=== PATIENT | female | born 1960 | race Caucasian/White ===

== ENCOUNTER → 2018-05-02 | Outpatient (CLI) | payer BC ==
--- NOTE | 2018-05-02 14:31 | DIAGNOSTIC IMAGING REPORT ---
LEFT HIP INJECTION UNDER FLUOROSCOPIC GUIDANCE CLINICAL HISTORY: Left hip pain. Steroid injection. PROCEDURE: The risks, benefits, and alternatives to the procedure were discussed with the patient. Written informed consent was obtained. The patient was placed supine on the fluoroscopy table, and a left hip injection was performed under fluoroscopic guidance. The area was prepped and draped in the usual sterile fashion. The skin and soft tissues anesthetized with local 1% lidocaine. The left hip joint was accessed utilizing a 22-gauge needle, and intra-articular positioning was confirmed by injecting a small volume of Optiray 300. The prescribed dosage of 2 cc of betamethasone and 8 cc of 0.5% bupivacaine was then injected into the joint space. The procedure was well tolerated and without immediate complication. The patient left the department in satisfactory condition. FLUOROSCOPY TIME: 11 seconds. IMPRESSION: Successful sterile injection of the left hip under fluoroscopic guidance. Electronically signed by: Skip Nunez M.D. 05/02/2018 2:29 PM Dictated Date/Time: 05/02/2018 2:28 PM
== END | disposition home or self-care (01) ==
LOC: C.RADBC 13:42
PROVIDERS: ATTEND Orthopaedic Surgery
DX: M16.12 Unilateral primary osteoarthritis, left hip (principal)

== ENCOUNTER 2021-10-25 06:24 | Observation (INO) ==
--- NOTE | 2021-09-22 09:59 | PAT Medication Instructions ---
Medication Instructions Date of Service September 22, 2021 Home Medications Medication Instructions Recorded amoxicillin 500 mg tablet 2,000 mg PO ONCE #4 tab 03/21/21 albuterol sulfate 90 mcg/actuation aerosol inhaler (Ventolin HFA) 2 puff INHALATION Q6H PRN multivitamin 1 tab PO QAM naproxen sodium 220 mg capsule (Aleve) 440 mg PO BID PRN budesonide-formoterol HFA 80 mcg-4.5 mcg/actuation aerosol inhaler (Symbicort) 2 puff INHALATION QPM PRN amoxicillin 500 mg tablet 2,000 mg PO ONCE acetaminophen 500 mg tablet 1,000 mg PO Q6H PRN ascorbic acid (vitamin C) 500 mg tablet (Vitamin C) 500 mg PO QAM cholecalciferol (vitamin D3) 25 mcg (1,000 unit) tablet (Vitamin D3) 25 mcg PO QAM zinc 50 mg tablet 50 mg PO QAM Continue as directed amoxicillin 500 mg tablet 2,000 mg PO ONCE (if needed) ASK your surgeon for instructions naproxen sodium 220 mg capsule (Aleve) 440 mg PO BID PRN DO NOT take the morning of surgery multivitamin 1 tab PO QAM ascorbic acid (vitamin C) 500 mg tablet (Vitamin C) 500 mg PO QAM cholecalciferol (vitamin D3) 25 mcg (1,000 unit) tablet (Vitamin D3) 25 mcg PO QAM zinc 50 mg tablet 50 mg PO QAM Take morning of surgery With a small sip of water, OTHERWISE NOTHING TO EAT OR DRINK AFTER MIDNIGHT: albuterol sulfate 90 mcg/actuation aerosol inhaler (Ventolin HFA) 2 puff INHALATION Q6H PRN (use if needed; please bring with you to hospital day of surgery if possible) acetaminophen 500 mg tablet 1,000 mg PO Q6H PRN (okay to take up to 4 hours prior to surgery if needed) Take evening before surgery albuterol sulfate 90 mcg/actuation aerosol inhaler (Ventolin HFA) 2 puff INHALATION Q6H PRN (if needed) budesonide-formoterol HFA 80 mcg-4.5 mcg/actuation aerosol inhaler (Symbicort) 2 puff INHALATION QPM PRN (if needed) acetaminophen 500 mg tablet 1,000 mg PO Q6H PRN (if needed) Other Notes If you have any questions please call us at [phone] or [phone] or [phone] or [phone]
--- NOTE | 2021-09-27 08:36 | Anesthesiology Consultation ---
Date of Service September 27, 2021 Assessment & Plan (1) Encounter for pre-operative examination: - Case discussed with Dr. Seo. He advised nothing further needed regarding low WBC and patient is acceptable outpatient joint candidate. Upon review of chart- patient is an acceptable candidate for [facility] from anesthesia perspective pending perioperative course. Pending patient is motivated, has good support and surgeon's office completes [facility] preop requirements- patient may proceed with outpatient BRYNN. - anesthesia record left BRYNN 07/09/2018: SAB at L3-L4, 1 attempt. No issues per anesthesia postop progress note. Per pt significant PONV for 1-2 days after surgery-"felt very cold, waking just to vomit and returning to sleep." - COVID screening: Per assessment on 09/27/2021: Travel screen negative, no known COVID-19 positive contacts or current COVID-19 related symptoms in past 2 weeks. Surgeon arranging preop COVID testing, scheduled 10/21/2021 [facility]. Awaiting results. Chart Review Chart Review: Acceptable Risk for Surgery and Patient seen in Pre Admission Testing Teaching & Discussion Pre-Anesthesia Teaching/Discussion Notes: Instructed NPO after midnight before surgery, except medications with 15 cc of water. Medication instructions provided according to the PAT guidelines. History Surgery Operation Date: 10/25/21 10:40 Proposed Procedures p Right Total Hip Arthroplasty - Rasta Benjamin MD Height/Weight Height: 5 ft 6 in Weight: 72.3 kg Allergies Allergy/AdvReac Type Severity Reaction Status Date / Time No Known Allergies Allergy Verified 09/19/21 08:56 Medications Home Medications Medication Instructions Recorded Confirmed Last Taken albuterol sulfate 90 mcg/actuation 2 puff INHALATION Q6H PRN 06/06/18 09/19/21 Unknown aerosol inhaler (Ventolin HFA) multivitamin 1 tab PO QAM 06/06/18 09/19/21 07/08/18 08:00 naproxen sodium 220 mg capsule 440 mg PO BID PRN 06/06/18 09/19/21 06/28/18 22:00 (Aleve) budesonide-formoterol HFA 80 2 puff INHALATION QPM PRN 07/09/18 09/19/21 Unknown mcg-4.5 mcg/actuation aerosol inhaler (Symbicort) amoxicillin 500 mg tablet 2,000 mg PO ONCE #4 tab 07/12/21 01/10/22 Unknown acetaminophen 500 mg tablet 1,000 mg PO Q6H PRN 09/19/21 09/19/21 Unknown ascorbic acid (vitamin C) 500 mg 500 mg PO QAM 09/19/21 09/19/21 Unknown tablet (Vitamin C) cholecalciferol (vitamin D3) 25 25 mcg PO QAM 09/19/21 09/19/21 Unknown mcg (1,000 unit) tablet (Vitamin D3) zinc 50 mg tablet 50 mg PO QAM 09/19/21 09/19/21 Unknown Past Medical History Medical History (Updated 09/28/21 @ 12:46 by Annie Lopez PA-C) Arthritis of right hip Asthma last rescue inhaler use > 3 months ago History of anesthesia reaction PONV, "freezing cold and out of it, waking just to vomit and going back to sleep" with BRYNN 2018 History of IBS history, denies current symptoms Osteoarthritis Pancreatic cyst F/U ANNUALLY [facility]-monitoring, stable per 08/2021 MRI Pulmonary nodules monitoring Spina bifida occulta per pt per 2018 anesthesia consult Patient denies h/o stroke, seizures, heart attack, heart failure, DM, HTN, blood clots or blood transfusions. Exercise / Class Metabolic Activity II 4-5 Yardwork/Stairs/Walk up hill (denies CP or SOB with 1 FOS) Past Family History Family History Other No known health problems Past Surgical History Surgical History (Updated 09/28/21 @ 12:46 by Annie Lopez PA-C) History of colonoscopy History of endoscopic sinus surgery History of open reduction and internal fixation (ORIF) procedure LEFT CLAVICLE History of total hip arthroplasty LEFT 07/09/2018: SAB at L3-L4, 1 attempt. Per pt significant PONV for 1-2 days after surgery-"waking just to vomit and returning to sleep" Past Anesthesia History No Family Hx of Anesthesia Complications and Other (see BRYNN 2018 surgical history) History of PONV No Hx of Motion Sickness and History of PONV Social History Smoking Status: Never smoker Do You Dip or Chew Tobacco: No Hx Alcohol Use: Yes Alcohol type: wine alcohol intake frequency: a few times a month Hx Substance Use: No substance use type: does not use Review of Systems Snoring, denies witnessed apneas or sleep studies. Occasional reflux/heartburn. Patient denies chest pain, shortness of breath, dyspnea on exertion, fever, chills, cough, wheezing, or palpitations. Physical Exam Vital Signs Vitals BP 122/74 P 62 TEMP 98.8 SP02 96% on RA RESP 17 Physical Full cervical extension range of motion without pain Full TMJ range of motion TMD 3 finger breaths Mallampati Score 2 Dentition: intact, 5 crowns upper sides; denies missing, chipped or loose teeth, implants or bridges Lungs: normal respiratory effort. Clear throughout to auscultation, no adventitious breath sounds Cardiac: regular rate and rhythm, no murmurs noted Carotid arteries: negative bruit bilat Extremities: no distal extremity edema Lab Results Anesthesia Preop Results Results Anesthesia Widget: WBC 3.79 K/uL (4.8-10.8) L 09/27/21 Hgb 13.8 g/dL (12.0-16.0) 09/27/21 Hct 41.4 % (37-47) 09/27/21 Plt 165 K/uL (130-400) 09/27/21 Na 138 mmol/L (136-145) 09/27/21 K 4.2 mmol/L (3.5-5.1) 09/27/21 Cl 105 mmol/L (98-107) 09/27/21 CO2 28 mmol/L (21-32) 09/27/21 BUN 15 mg/dl (6-23) 09/27/21 Creat 0.75 mg/dl (0.6-1.2) 09/27/21 Glucose Level 83 mg/dl (70-99(Fasting)) 09/27/21 PT 10.2 Seconds (9.0-12.0) 09/27/21 PTT 29.5 Seconds (21.0-31.0) 09/27/21 INR 1.0 (0.9-1.1) 09/27/21 HA1c 5.4 % (4.5-5.6) 09/27/21 Blood Type O Positive 09/27/21 Antibody Screen NEGATIVE 09/27/21 Lab Comments: PAT testing faxed to PCP for continuity of care. Testing Electrocardiogram Date: 09/27/21 Sinus bradycardia, rate 54 bpm. No significant change when compared with 06/10/2018 EKG. Chest X-Ray Date: 09/27/21 FINDINGS: Lung volumes are normal. Lungs are clear. There is no pneumothorax or pleural effusion. Cardiac size is normal. Mediastinal contours are normal. There is no evidence for pulmonary edema. Calcified mediastinal and right hilar lymph nodes are incidentally noted. Left clavicular internal fixation is present. IMPRESSION: No acute cardiopulmonary findings. Other Testing MRI pancreas w and w/o contrast 08/20/2021 10 x7 x9 mm distal pancreatic tail cystic lesion, unchanged from 05/25/2016. Two year follow-up is suggested
--- NOTE | 2021-10-21 15:36 | History and Physical Report ---
DATE OF ADMISSION: 10/25/2021 CHIEF COMPLAINT: Persistent and progressive right hip pain. HISTORY OF PRESENT ILLNESS: The patient is a 61-year-old white female who presents for surgical emilio tment of her right hip. She has a history of left hip replacement done by myself back in 06/2018. O anjali the past year, in particular in the past 6 months, she has developed increased pain and discomfor t in her right hip. She describes groin pain, thigh pain and buttock and low back pain. She has bee n through extensive medication management including various NSAIDs without much relief. It is limiti ng her activities. The more she walks, the more it hurts. She would like to have her right hip fixe d. PAST MEDICAL HISTORY: Significant for, 1. Asthma. 2. Osteoarthritis. PAST SURGICAL HISTORY: Includes, 1. Left total hip replacement done on 07/09/2018. 2. Left clavicle ORIF. ALLERGIES: None. CURRENT MEDICATIONS: Include, 1. Albuterol. 2. Symbicort. 3. Mobic. 4. Multivitamin. 5. Aleve. SOCIAL HISTORY: A 61-year-old female. She is . Does not smoke. FAMILY HISTORY: Noncontributory. REVIEW OF SYSTEMS: Negative for diabetes, neurologic problem, vascular problem, or bleeding disorder s. No chest pain or shortness of breath. No history of DVT or PE. No known bleeding problems. PHYSICAL EXAMINATION: GENERAL: Healthy, pleasant, middle-aged female. Looks to be in excellent health. HEENT: Benign. NECK: Supple. No lymphadenopathy. LUNGS: Clear to auscultation. HEART: Has a regular rate and rhythm. ABDOMEN: Soft, nontender, nondistended. EXTREMITIES: Grossly neurovascularly intact except as follows: Examination of the right hip reveale d patient ambulates with a bit of a limp. Leg lengths appear pretty equal. She has got a very stiff hip with internal rotation to neutral, which creates her pain. Negative straight leg raise. She is neurologically intact. No knee effusion. X-RAYS: X-rays of the right hip are reviewed. It shows advanced right hip DJD. She has near comple te loss of her joint space. She has got cystic changes in the femoral head and acetabulum. This has progressed significantly over the past year. The left hip replacement looks to be in good position. ASSESSMENT: A 61-year-old female status post left hip replacement 3 years ago with advanced right hi p degenerative joint disease. This has progressed markedly over the past year and has been nonrespon sive to conservative care. She would like to have her right hip fixed. PLAN: We will proceed with right total hip replacement. The risks and benefits of this procedure we re explained to the patient that include but not limited to DVT, PE, , infection, neurological i njury, vascular injury, bleeding problem, pain, limited range of motion, stiffness, failure to reliev e her symptoms, incomplete relief of symptoms, need for further surgery in the future, fracture, leg length inequality, nerve palsy, dislocation, etc. The patient understands and desires to proceed. I nformed consent was obtained. The patient did have a lot of problems with nausea postoperatively. We will try and eliminate the mo rphine in the spinal. We will use some Decadron at the time of surgery. We will also use Zofran and scopolamine patch. She is planning to be discharged to home and do this as an outpatient. She will follow up with us 2 weeks postop. She is going to have [facility] do outpatient care for her. Job ID: [id number]
[~2021-10-25 06:24] MED LIST: ACETAMINOPHEN 500 MG TAB PO SCH; FAMOTIDINE 20 MG TAB PO SCH; GABAPENTIN 600 MG DOSE PO SCH; LR 500ML BOLUS, THEN 15ML/HR IV SCH; LR 60ML/HR IV SCH; Scopolamine 1 MG TDSY TD SCH; TRANEXAMIC ACID 1,000 MG **IV Pre-op IV SCH; ceFAZolin 2000MG 2,000 MG/15 ML SYR IV SCH
[2021-10-25] MEDS ORDERED: MEPIVACAINE HCL 1.5% 30 ML VIAL ONE (06:29)
--- NOTE | 2021-10-25 06:55 | History & Physical Bridge Note ---
Date of Service October 25, 2021 History & Physical Bridge Note I have examined the patient, reviewed the History & Physical and in the interval since the performance of the History & Physical I have noted the following changes of clinical significance: no changes noted
[2021-10-25] MEDS ORDERED: LIDOCAINE 2%/EPINEPHRINE 1:200,000 20 ML SDV ONE (07:27)
[2021-10-25] MEDS ORDERED: MIDAZOLAM HCL 1 MG/ML 2ML VIAL ONE (07:54)
[2021-10-25] MEDS ORDERED: EPINEPHrine INJ 1 MG/ML AMP ONE (08:31)
[2021-10-25] MEDS ORDERED: BUPIVACAINE 0.5 % 5 MG/1 ML MPF 30ML VIAL ONE (08:31)
[2021-10-25] MEDS ORDERED: ATROPINE SULFATE 0.1 MG/ML 10ML SYR IV PRN (08:59)
[2021-10-25] MEDS ORDERED: ONDANSETRON INJ 2 MG/ML 2 ML VIAL IV PRN ×2 (08:59→15:38)
[2021-10-25] MEDS ORDERED: HYDROmorphone INJ 2 MG/ML SYR/VIAL IV PRN (08:59)
[2021-10-25] MEDS ORDERED: ePHEDrine sulfate 50 MG/ML AMP IV PRN (08:59)
[2021-10-25] MEDS ORDERED: fentaNYL citrate 100 MCG/2 ML VIAL IV PRN (08:59)
[2021-10-25] MEDS ORDERED: KETAMINE 50 MG/5 ML SYRINGE ONE (09:06)
[2021-10-25] MEDS ORDERED: GLYCOPYRROLATE 0.2 MG/ML VIAL ONE (09:22)
[2021-10-25] MEDS ORDERED: KETOROLAC 30 MG/ML VIAL ONE ×2 (09:22→16:10)
[2021-10-25] MEDS ORDERED: PROPOFOL IV EMULSION 10 MG/ML 20 ML VIAL IV ONE (09:22)
[2021-10-25] MEDS ORDERED: ONDANSETRON INJ 2 MG/ML 2 ML VIAL ONE (09:22)
[2021-10-25] MEDS ORDERED: PHENYLEPHRINE HCL 10 MG/ML VIAL ONE (09:22)
[2021-10-25] MEDS ORDERED: DEXAMETHASONE SOD INJ 4 MG/ML VIAL ONE (09:22)
[2021-10-25] MEDS ORDERED: traMADol HCL 50 MG TABLET PO PRN ×2 (10:25→15:38)
--- NOTE | 2021-10-25 10:36 | Operative Report ---
PG Post Operative Report Pre & Post Diagnosis Operation Date: 10/25/21 08:40 Pre-Op Diagnosis: Right Hip Advanced Degenerative Joint Disease Post-Op Diagnosis: Right Hip Advanced Degenerative Joint Disease I identified the patient and participated in the time-out.: Yes Procedure Operation Date: 10/25/21 08:40 Actual Procedures p Right Total Hip Arthroplasty--Uncemented(Right) - Rasta Benjamin MD Surgeon Rasta Benjamin MD Director Surface Transportation Michael Garcia PA-C Estimated Blood Loss 200 Findings Consistent with Post-Op Diagnosis Operative findings were advanced right hip DJD. She had grade 4 dmag-to-rjth disease the femoral head and acetabulum with a moderate to large hip joint effusion. Some moderate to large amount of hip synovitis as well as particularly anteriorly. Fluids 1900 cc Specimens Right femoral head sent for pathology Drains None Anesthesia Type MAC Epidural Complications none Disposition Accompanied Patient To Recovery: Yes Indications Patient is 61-year-old female has had a history of hip problems. She had her left hip replaced couple years ago and is done well. Over the past couple years she developed increased pain discomfort in her right hip. She failed conservative measures. X-rays show advanced hip arthritis. She elected proceed with surgical management. Description of Procedure Operative implants consist of: 1. Biomet G7 size 50 mm acetabular shell. 2. 6.5 cancellous acetabular screws 135 mm length 125 mm length. 3. [place] hole crystal report developer. 4. Highly cross-linked polyethylene liner with a 50 mm outer diameter and 32 mm inner diameter. 5. DePuy [place] size 9 KLA femoral stem. 6. +5/32 mm ceramic articular ball. The patient was taken to the operating, identified, placed on the operating table supine position protectors were properly padded. IV antibiotics tried by anesthesia team. A spinal anesthetic had been implemented holding area. Patient was then placed in the left lateral cubitus position. Axillary roll was placed. A Stulberg hip positioner was used for positioning. The right hip and leg were then prepped and draped in usual sterile fashion. A posterior lateral approach to the right hip was then performed to a curvilinear incision centered over the greater trochanter. Sharp dissection got through subcutaneous tissue down to level the IT band gluteal fascia the IT band gluteal fascia were incised longitudinally in line with skin incision. The underlying greater bursa was excised. The piriformis and external rotators were tagged and taken off the posterior aspect hip joint capsule. Great care was taken throughout the procedure protect the sciatic nerve at all times. Posterior capsulotomy was then performed leaving a large flap for later repair. Hip was internally rotated and dislocated. Femoral neck osteotomy cut was made with Final Cut about 10 to 11 mm above the lesser trochanter. Femoral head was removed and sent for pathology. The femur was retracted anteriorly. Attention drawn the acetabulum. The acetabular labrum was excised. The pulmonary fat was excised. Sequential reaming the acetabular was then performed begin with size 43 and progressing up to 49. I reamed a little bit with a 50 reamer and then placed a 50 mm cup in about 40 degrees lateral opening and 20 degrees of anteversion. It was fixed with two 6.5 cancellous acetabular screws. A trial liner was placed. Attention drawn the femur. The proximal femur was entered with a cookie-cutter followed by canal finder. I then broached begin the size 8 and progressing up to 9. We had quite a bit of difficulty getting the 9 downside in think I can fit a 10 size similar to the opposite side. I then trialed the hip. The +5 articular ball provided full stability in full extension and external rotation and flexion to 90 degrees internal rotation over 50 degrees. Soft tissue tension seemed appropriate. Leg lengths seem equal. We elect to place these implants. All trial implants were removed. An apex hole crystal report developer was placed but highly cross-linked polyethylene liner was placed. A DePuy size 9 KLA femoral stem was impacted in position. +5/32 mm ceramic articular ball was placed. Hip was located once again found to be stable. Attention drawn toward closing. The wound was irrigated with copious also pulsatile lavage solution. We did inject locally with 60 cc of half percent Marcaine with epinephrine. Posterior capsule and external rotators were then repaired through drill holes in the posterior trochanter with #2 Tycron suture. The IT band gluteal fascia then closed in 1 PDS suture running fashion for subcutaneous tissue then closed 2 layers the deep layer #1 Vicryl suture in the subcutaneous tissues with 2-0 Dexon suture in a buried interrupted fashion the skin was closed skin remi. Leg was then cleaned and dried a sterile dressing was Xeroform, 4 x 4's, ABD p ad, foam tape was applied. The patient then transferred to the recovery room in stable condition. The patient tolerated procedure well and there were no complications. Michael Garcia, my physician intellectual property legal assistant, was present for the entire procedure. His assistance was essential and required for appropriate patient positioning, prepping and draping, surgical exposure, performing the technical details of the operation, placement the implants, closure of the wound, and placement of the sterile bandage. I attest to the content of the Intraoperative Record and any orders documented therein. Any exceptions are noted below.
--- NOTE | 2021-10-25 11:04 | XRay Report ---
XR hip 1V RT w pelvis HISTORY: 61 years-old Female IN PACU - A/P PELVIS and LATERAL HIP right hip total joint arthroplast y COMPARISON: Pelvis and hip radiographs 10/09/2019 TECHNIQUE: AP view of the pelvis with crosstable lateral view of the right hip FINDINGS: Left hip total joint arthroplasty redemonstrated. Mildly demineralized appearance the bones. Right hi p total joint arthroplasty demonstrates satisfactory alignment without acute fracture. Lateral skin s taples are noted along with expected postoperative soft tissue swelling and deep tissue air. No unexp ected opaque foreign body identified. Pelvic basin phleboliths. IMPRESSION: Right hip total joint arthroplasty with expected postoperative changes. ACT 112: Negative or not required by law. The above report was generated using voice recognition software. It may contain grammatical, syntax o r spelling errors. Electronically signed by: Cristo Rea M.D. 10/25/2021 11:03 AM
--- NOTE | 2021-10-25 11:38 | Anesthesiology Progress Note ---
Date of Service October 25, 2021 Anesthesia Post Procedure Vital Signs Vital Signs: Temp Pulse Pulse Resp BP Pulse Ox 10/25/21 11:00 36.3 C L 72 17 130/93 98 10/25/21 10:50 71 19 139/92 99 10/25/21 10:40 78 16 140/81 100 10/25/21 10:30 36.1 C L 81 16 132/88 100 10/25/21 06:53 36.6 C 58 L 18 131/86 97 Pain Intensity Right Hip: Pain Intensity: 5 Back: Pain Intensity: 2 Transfer of Care Handoff Completed per policy Notes Mental Status: alert / awake / arousable and participated in evaluation Patient Amnestic to Procedure: Yes Nausea / Vomiting: adequately controlled Pain: adequately controlled Airway Patency, RR, SpO2: stable & adequate BP & HR: stable & adequate Hydration State: stable & adequate Anesthetic Complications: no major complications apparent and Pt Satisfied with anesthetic care
[2021-10-25] MEDS ORDERED: ceFAZolin 1000MG 1,000 MG/7.5 ML SYR IV ONE (12:30)
[2021-10-25] MEDS ORDERED: diphenhydrAMINE Capsule 25 MG CAP PO PRN (15:38)
[2021-10-25] MEDS ORDERED: bisacodyL 10 MG SUPP PR PRN (15:38)
[2021-10-25] MEDS ORDERED: NALOXONE HCL 0.4 MG/1 ML VIAL/CARP IV PRN (15:38)
[2021-10-25] MEDS ORDERED: MAGNESIUM HYDROXIDE SUSP 30 ML UDC PO PRN (15:38)
[2021-10-25] MEDS ORDERED: METOCLOPRAMIDE HCL INJ 5 MG/ML 2 ML VIAL IV PRN (15:38)
[2021-10-25] MEDS: KETOROLAC 30 MG/ML VIAL IV SCH ×2 (16:11→21:25)
[2021-10-25] MEDS: Scopolamine CHECK PATCH PLACEMENT SCH (16:54)
[2021-10-25] MEDS: SODIUM CHLORIDE 0.9% 1000ML 1,000 ML IV SCH ×2 (16:54→21:31)
[2021-10-25] MEDS: ASCORBIC ACID 500 MG TAB PO SCH (17:16)
[2021-10-25] MEDS: ceFAZolin 1000MG 1,000 MG/7.5 ML SYR IV SCH (17:19)
[2021-10-25] MEDS ORDERED: SENNA 8.6 MG TAB PO SCH (21:00)
[2021-10-25] MEDS: ASPIRIN 81 MG ECTAB PO SCH (21:24)
[2021-10-25] MEDS: ACETAMINOPHEN 500 MG TAB PO SCH (21:24)
[2021-10-25] MEDS: DOCUSATE SODIUM 100 MG CAP PO SCH (21:24)
[2021-10-25] MEDS ORDERED: TRANEXAMIC ACID / 0.7% NACL 1,000 MG/100 ML BAG IV SCH (21:45)
[2021-10-26] MEDS: Scopolamine CHECK PATCH PLACEMENT SCH ×2 (01:32→08:21)
[2021-10-26] MEDS: ceFAZolin 1000MG 1,000 MG/7.5 ML SYR IV SCH (01:32)
[2021-10-26] MEDS: KETOROLAC 30 MG/ML VIAL IV SCH ×2 (03:35→09:22)
[2021-10-26] MEDS: ACETAMINOPHEN 500 MG TAB PO SCH ×2 (06:00→14:03)
[2021-10-26 06:21] LABS: Basophils # (auto) 0.02 K/uL (0-0.2); Basophils % (auto) 0.3 %; Eosinophils # (auto) 0.03 K/uL (0-0.5); Eosinophils % (auto) 0.4 %; Hematocrit (blood only) 33.9 % (37-47); Hemoglobin 11.2 g/dL (12.0-16.0); Immature Granulocytes # (auto) 0.01 K/uL (0.00-0.02); Immature Granulocytes % (auto) 0.1 %; Lymphocytes # (auto) 1.61 K/uL (1.2-3.4); Lymphocytes % (auto) 20.8 %; Mean Corpuscular Hemoglobin 29.9 pg (25-34); Mean Corpuscular Volume 90.4 fL (80-100); Mean Platelet Volume 12.6 fL (7.4-10.4); Monocytes # (auto) 0.43 K/uL (0.11-0.59); Monocytes % (auto) 5.6 %; Neutrophils # (auto) 5.63 K/uL (1.4-6.5); Neutrophils % (auto) 72.8 %; Platelet Count 154 K/uL (130-400); RDW Coefficient of Variation 13.1 % (11.5-14.5); Red Blood Count 3.75 M/uL (4.2-5.4); White Blood Count 7.73 K/uL (4.8-10.8)
[2021-10-26 06:40] LABS: BUN Creatinine Ratio 13.4 (10-20); Calcium 8.8 mg/dl (8.5-10.1); Creatinine Clr Calc Pharmacy 75.1 ml/min; Est GFR (African American) 90.8 ml/min; Est GFR (Non-African American) 78.3 ml/min; Potassium 3.9 mmol/L (3.5-5.1)
[2021-10-26] MEDS ORDERED: dexAMETHasone 10 MG in SYRINGE 0 ML IV SCH (08:00)
[2021-10-26] MEDS: ASCORBIC ACID 500 MG TAB PO SCH (08:21)
[2021-10-26] MEDS: DOCUSATE SODIUM 100 MG CAP PO SCH (08:23)
[2021-10-26] MEDS: ASPIRIN 81 MG ECTAB PO SCH (08:23)
[2021-10-26] MEDS ORDERED: MULTIVITAMIN TAB PO SCH (09:00)
--- NOTE | 2021-10-26 14:39 | Progress Notes ---
DATE OF SERVICE: 10/26/2021 SUBJECTIVE: A 61-year-old white female postoperative day 1 from right hip replacement. She stayed o vernight as she was having troubles with hypotension. Doing much better today. She has been walking in the hallway with her . Pain is controlled. No chest pain or shortness of breath. Not fe eling dizzy or lightheaded. OBJECTIVE: VITAL SIGNS: Temperature 36.9. Vital signs are stable. GENERAL: Shows a pleasant middle-aged female. She is sitting in her chair at bedside looks quite co mfortable. EXTREMITIES: Examination of the right hip reveals the dressing to be clean, dry and intact. Thigh i s soft and supple. Leg lengths are equal. She is neurologically intact. LABORATORY DATA: Hemoglobin 11.2. Hematocrit 33.9. Electrolytes are stable. ASSESSMENT: A 61-year-old white female postop from a right hip replacement. She is postoperative da y 1. Doing much better today. She is ambulating in the hallways quite well. PLAN: 1. DVT prophylaxis includes thigh-high TEDs, SCDs, and aspirin twice a day. 2. PT/OT. She can weight bear as tolerated. 3. Pain control, doing okay with current pain regimen. 4. Hypotension, markedly improved today. Asymptomatic. 5. Disposition: Plan to discharge to home with some home health today. Job ID: [id number]
--- NOTE | 2021-10-31 07:04 | Discharge Summary ---
Date of Service October 31, 2021 Discharge Data Procedures Performed Operation Date: 10/25/21 08:40 Actual Procedures p Right Total Hip Arthroplasty--Uncemented(Right) - Rasta Benjamin MD Hospital Course (1) S/P total right hip arthroplasty: Keke is a 61 year old patient admitted on 10/25/21 and underwent total hip arthroplasty. She tolerated the procedure well and there were no complications. Transferred to the PACU post op and later to the orthopedic floor for further care. She was given ancef for antibiotic prophylaxis. She was also given BRIT stockings, SCDs, and aspirin for DVT prophylaxis. Hemoglobin, hematocrit, and vital signs were monitored during her hospital stay and remained stable. She did have some hypotension. Did not require any blood transfusions. There were no complications during her hospital stay. By post op day #1 the patient was tolerating a regular diet, pain was reasonably controlled with oral pain medicine, and she was participating in physical therapy. On post op day #1 the patient was discharged home and set up with home health care. She was given printed discharge instructions including prescriptions for extra strength tylenol, aspirin, toradol, and tramadol. Continue physical therapy, weight bearing as tolerated. Continue hip precautions. Continue BRIT stockings. Follow up approximately 2 weeks post op or sooner if there are problems or concerns. Coding Level of Care Code None Diagnoses S/P total right hip arthroplasty Z96.641
== END 2021-10-26 14:36 | disposition home health service (06) ==
LOC: 3E 06:24 → ASU 06:24